=== PATIENT | male | born 1950 | race Caucasian/White ===

== ENCOUNTER 2016-12-05 07:45 | Emergency (ER) | payer MEDICARE, MEDICAID ==
--- NOTE | 2016-12-05 08:40 | C.PDOC ---
Time Seen by Provider: 12/05/16 08:25 Chief Complaint (Nursing): Weakness/Neurological Deficit Past Medical History Vital Signs: Last Vital Signs Temp 97.9 F 12/05/16 08:11 Pulse 112 H 12/05/16 08:11 Resp 18 12/05/16 08:11 BP 225/134 H 12/05/16 08:11 Pulse Ox 99 12/05/16 08:11 - Medical History PMH: Benign Prostatic Hyperplasia, HTN - Social History Hx Alcohol Use: Yes Hx Substance Use: No - Immunization History Hx Tetanus Toxoid Vaccination: No Hx Influenza Vaccination: No Hx Pneumococcal Vaccination: No ED Course And Treatment O2 Sat by Pulse Oximetry: 99
--- NOTE | 2016-12-05 09:00 | C.PDOC ---
History Of Present Illness 66 y/o male brought in by EMS presents to ED with complaints of new onset intermittent right sided weakness since 12/03, currently asymptomatic. Pt states last episode yesterday, stating he felt like he couldn't sit himself up with right arm and felt like he "was dragging" his right leg. Pt saw PMD for same and was advised to come to ED that day. Pt states wasn't able to come in until today. He ran out of BP medications 2 weeks ago but got refill yesterday. Denies history of chest pain or cardiac history. VIA TRANS NEW ONSET R SIDED WEAKNESS SINCE 12/03. INTERMIT, NOW ASYMPT. LAST EPISODE YESTERDAY. PS FELT LIKE COULDNT SIT HIMSELF UP W R ARM, FELT LIKE "WAS DRAGGING " HIS R LEG. SAW PMD FOR SAME 12/04 AND WAS ADVISED TO COME TO ER THAT DAY. PS WASNT ABLE TO UNTIL TODAY. HAD RAN OUT OF BP MEDS X 2 WEEKS BUT GOT REFILL YEST. DENIES HO CP OR PRIOR CARDIAC HX EXAM NAD NONTOXIC LUNGS NEG NEURO SEE NIH GAIT STEADY WNL REMAINDER NEG Time Seen by Provider: 12/05/16 08:25 Chief Complaint (Nursing): Weakness/Neurological Deficit History Per: Patient History/Exam Limitations: no limitations Onset/Duration Of Symptoms: Days, Intermittent Episodes Current Symptoms Are (Timing): Gone Severity: Moderate Reports Recently: Treated By A Physician Recent travel outside of the [place]: No Past Medical History Reviewed: Historical Data, Nursing Documentation, Vital Signs Vital Signs: Last Vital Signs Temp 98.4 F 12/05/16 13:33 Pulse 86 12/05/16 13:33 Resp 16 12/05/16 13:33 BP 185/112 H 12/05/16 13:33 Pulse Ox 96 12/05/16 13:33 - Medical History PMH: Benign Prostatic Hyperplasia, HTN Family History: States: Unknown Family Hx - Social History Hx Alcohol Use: Yes Hx Substance Use: No - Immunization History Hx Tetanus Toxoid Vaccination: No Hx Influenza Vaccination: No Hx Pneumococcal Vaccination: No Review Of Systems Except As Marked, All Systems Reviewed And Found Negative. Constitutional: Negative for: Fever Cardiovascular: Negative for: Chest Pain Respiratory: Negative for: Shortness of Breath Gastrointestinal: Negative for: Vomiting Neurological: Positive for: Weakness (right sided). Negative for: Headache Physical Exam - Physical Exam Appears: Non-toxic, No Acute Distress Skin: Warm, Dry Head: Atraumatic, Normacephalic Neck: Normal, Normal ROM, Supple Chest: Symmetrical Cardiovascular: Rhythm Regular, No Murmur Respiratory: Normal Breath Sounds, No Rales, No Rhonchi, No Wheezing Gastrointestinal/Abdominal: Soft, No Tenderness Extremity: Normal ROM Extremity: Bilateral: Atraumatic Pulses: Left Dorsalis Pedis: Normal, Right Dorsalis Pedis: Normal Neurological/Psych: Oriented x3 (See NIH) Gait: Steady ED Course And Treatment - Laboratory Results Result Diagrams: 12/05/16 09:24 12/05/16 09:24 ECG: Interpreted By Me ECG Rhythm: Sinus Tachycardia Interpretation Of ECG: TWI I II III AVL AVF V4-6. No prior to compare Rate From EC (BPM) O2 Sat by Pulse Oximetry: 99 (room air) Pulse Ox Interpretation: Normal - Radiology CXR: Viewed By Me, Read By Radiologist CXR Interpretation: Yes: No Acute Disease - CT Scan/US CT head Other Rad Studies (CT/US): Read By Radiologist, Radiology Report Reviewed CT/US Interpretation: PROCEDURE: CT HEAD WITHOUT CONTRAST. HISTORY: R SIDED WEAKNESS, UNCONTROL HTN. COMPARISON: None available. TECHNIQUE: Axial computed tomography images were obtained through the head/brain without intravenous contrast. Radiation dose: Total exam DLP = 943.17 mGy-cm. This CT exam was performed using one or more of the following dose reduction techniques: Automated exposure control, adjustment of the mA and/or kV according to patient size, and/or use of iterative reconstruction technique. FINDINGS: HEMORRHAGE: No intracranial hemorrhage. BRAIN: No mass effect or edema. Mild diffuse age-appropriate cerebral atrophy. There is mild to moderate periventricular white matter lucency with patchy deep and subcortical white matter lucency, consistent with age-related microvascular ischemic change. There are small old bilateral thalamic lacunar infarcts. There is an old right lentiform nucleus lacunar infarct. There is remote ischemic change of the external capsule bilaterally. There is minimal brainstem ischemic change. There is no evidence of acute infarct. VENTRICLES: Final. CALVARIUM: Unremarkable. PARANASAL SINUSES: Unremarkable as visualized. No significant inflammatory changes. MASTOID AIR CELLS: Unremarkable as visualized. No inflammatory changes. OTHER FINDINGS: None. IMPRESSION: No intracranial mass , hemorrhage or evidence of acute infarct. 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 Chronic periventricular and deep and subcortical white matter ischemic change consistent with age. NIHSS Stroke Scale - Date/Time Evaluation Performed Date Performed: 12/05/16 Time Performed: 08:30 When Was NIHSS Performed: Baseline - How Severe is the Stroke Level of Consciousness: 0=Alert LOC to Questions: 0=Both comments correct LOC to commands: 0=Obeys both correctly Best Gaze: 0=Normal Visual: 0=No visual loss Facial: 0=Normal Motor Arm - Left: 0=No drift Motor Arm - Right: 0=No drift Motor Leg - Left: 0=No drift Motor Leg - Right: 0=No drift Limb Ataxia: 0=Absent Sensory: 0=Normal Best Language: 0=No aphasia Dysarthia: 0=Normal articulation Extinction & Inattention (Neglect): 0=Normal, no object Score: 0 Progress - Re-Evaluation Re-evaluation Note: 12/05/16 10:21 D/W PMD WILL ADMIT EXAM UNCH. CT NEG - Data Reviewed Data Reviewed: Lab, Diagnostic imaging, EKG, Old records - Critical Care Citical Care: Excluding Proc Time Critical Care Time: 120 minutes - Continuity of Care Discussed patient case with:: Patient rTPA Inclusion/Exclusion - Refusal of Treatment Patient Refused Treatment: No - Inclusion Criteria for Altepase Patient is 18 years or Older: Yes The Clinical Diagnosis of Ischemic Stroke That is Causing a Potentially Disabling Neurological Deficit: No Time of Onset is Well Established to be Less Than 270 Minute Before Treatment Would Begin: No Risk/Benefit Discussed With Patient/Family Member Present: No - Exclusion Criteria for Altepase Uncontrolled Hypertension at Time of Treatment (Systolic BP above 185 or Diastolic BP above 110 mmHg): Yes Active Internal Bleeding: No Known Bleeding Diathesis Including but Not Limited to: Platelets Below 100,000/ mm,PTT Above 40 sec After Heparin Use, Current Use of Oral Anitcoagulant With INR Greater Than 1.7 or PT Greater Than 15 secs: No Evidence of an Intracranial Hemorrhage: No Evidence of Major Acute Infarct With Signs Greater Than 1/3 MCA Territory: No Suspicion of Subarachnoid Hemorrhage on Pretreatment Evaluation Even if CT Head Negative For Hemorrhage: No - Warning to TPA With Conditions Following Conditions Weighed Against Anticipated Benefit: No Condition: Stroke Serevity Too Mild Medical Decision Making Medical Decision Making: Plan: * CT head * EKG * CXR * labs, UA * trandate Disposition Counseled Patient/Family Regarding: Studies Performed, Diagnosis - Disposition Disposition: HOSPITALIZED Disposition Time: 10:30 Condition: STABLE - POA Present On Arrival: None - Clinical Impression Clinical Impression: TIA (transient ischemic attack), Uncontrolled hypertension, Abnormal EKG - Scribe Statement The provider has reviewed the documentation as recorded by the Virgilibpastor Bal Provider Attestation: All medical record entries made by the Virgilibpastor were at my direction and personally dictated by me. I have reviewed the chart and agree that the record accurately reflects my personal performance of the history, physical exam, medical decision making, and the department course for this patient. I have also personally directed, reviewed, and agree with the discharge instructions and disposition. Decision To Admit - Pt Status Changed To: Hospital Disposition Of: Observation - . Bed Request Type: Telemetry Admitting Physician: Gerardo Chau Patient Diagnosis: TIA (transient ischemic attack), Uncontrolled hypertension, Abnormal EKG
[2016-12-05] MEDS ORDERED: Labetalol 25mg/5ml Syringe IVP STA ×2 (09:04→10:23)
[2016-12-05] MEDS ORDERED: Labetalol 25mg/5ml Syringe ONE ×2 (09:26→11:16)
[2016-12-05 09:30] LABS: BASO % 0.9 % (0.0-2.0); EOS % 1.2 % (0.0-4.0); HEMATOCRIT 54.2 % (35.0-51.0); LYMPH # 1.3 K/uL (1.0-4.3); LYMPH % 31.6 % (20.0-40.0); MEAN CELL VOLUME 101.3 fL (80.0-94.0); MEAN CORPUSCULAR HEMOGLOBIN 34.4 pg (27.0-31.0); MEAN PLATELET VOLUME 8.2 fL (7.2-11.7); MONO # 0.6 K/uL (0.0-0.8); MONO % 14.1 % (0.0-10.0); NRBC % 0.1 % (0.0-2.0); RED CELL DISTRIBUTION WIDTH 15.2 % (11.5-14.5); WHITE BLOOD COUNT 4.2 K/uL (4.8-10.8)
[2016-12-05 09:37] LABS: CHLORIDE 99 mmol/L (98-107); POTASSIUM 3.7 mmol/L (3.6-5.2); SODIUM 138 mmol/L (132-148)
[2016-12-05 09:39] LABS: ALB/GLOB RATIO 1.3 (1.0-2.1); BILIRUBIN,TOTAL 1.2 mg/dL (0.2-1.3); CARBON DIOXIDE 29 mmol/L (22-30); CHOLESTEROL 177 mg/dL (0-199); GFR AFRICAN-AMERICAN > 60; TOTAL PROTEIN 7.1 g/dL (6.3-8.3)
[2016-12-05 09:40] LABS: ALKALINE PHOSPHATASE 66 U/L (38-126); ALT/SGPT 24 U/L (21-72); AST/SGOT 33 U/L (17-59); BLOOD UREA NITROGEN 8 mg/dL (9-20); CALCIUM 8.5 mg/dl (8.6-10.4); GLUCOSE,RANDOM 96 mg/dL (75-110)
[2016-12-05 10:04] LABS: RBC URINE 2 /hpf (0-3); URINE BACTERIA FEW (<OCC); URINE BILIRUBIN NEGATIVE (NEGATIVE); URINE BLOOD NEGATIVE (NEGATIVE); URINE COLOR Yellow (YELLOW); URINE GLUCOSE (UA) NORMAL (Normal); URINE KETONE NEGATIVE (NEGATIVE); URINE LEUKOCYTE ESTERASE TRACE Leu/uL (Negative); URINE PROTEIN 1+ mg/dL (NEGATIVE); WBC URINE 15 /hpf (0-5)
--- NOTE | 2016-12-05 10:12 | CT ---
PROCEDURE: CT HEAD WITHOUT CONTRAST. HISTORY: R SIDED WEAKNESS, UNCONTROL HTN COMPARISON: None available. TECHNIQUE: Axial computed tomography images were obtained through the head/brain without intravenous contrast. Radiation dose: Total exam DLP = 943.17 mGy-cm. This CT exam was performed using one or more of the following dose reduction techniques: Automated exposure control, adjustment of the mA and/or kV according to patient size, and/or use of iterative reconstruction technique. FINDINGS: HEMORRHAGE: No intracranial hemorrhage. BRAIN: No mass effect or edema. Mild diffuse age-appropriate cerebral atrophy. There is mild to moderate periventricular white matter lucency with patchy deep and subcortical white matter lucency, consistent with age-related microvascular ischemic change. There are small old bilateral thalamic lacunar infarcts. There is an old right lentiform nucleus lacunar infarct. There is remote ischemic change of the external capsule bilaterally. There is minimal brainstem ischemic change. There is no evidence of acute infarct. VENTRICLES: Final CALVARIUM: Unremarkable. PARANASAL SINUSES: Unremarkable as visualized. No significant inflammatory changes. MASTOID AIR CELLS: Unremarkable as visualized. No inflammatory changes. OTHER FINDINGS: None. IMPRESSION: No intracranial mass, hemorrhage or evidence of acute infarct. 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 Chronic periventricular and deep and subcortical white matter ischemic change consistent with age.
--- NOTE | 2016-12-05 10:18 | RAD ---
HISTORY: ABN EKG COMPARISON: 09/06/2015. TECHNIQUE: Chest PA and lateral FINDINGS: LUNGS: The lungs are well inflated and clear. PLEURA: No significant pleural effusion identified. No pneumothorax apparent. CARDIOVASCULAR: Normal. OSSEOUS STRUCTURES: No significant abnormalities. VISUALIZED UPPER ABDOMEN: Normal. OTHER FINDINGS: None. IMPRESSION: No active pulmonary disease.
[2016-12-05 12:25] VITALS: PULSE 86; RESP 16
[2016-12-05 13:39] VITALS: BP 185/112; TEMP 98.4
[2016-12-07 07:38] VITALS: O2SAT 99
--- NOTE | 2016-12-08 06:50 | CARD ---
APPROVED REPORT EKG Measurement Heart [id number] <Conclusion> Sinus tachycardia Left ventricular hypertrophy with repolarization abnormality Abnormal ECG
== END 2016-12-05 14:05 | disposition left against medical advice (07) ==
LOC: C.ER 07:45 → UNDOADMOB 10:22 → C.9E 10:22 → C.ER 14:05
DX: G45.9 Transient cerebral ischemic attack, unspecified (principal); I10 Essential (primary) hypertension; R94.31 Abnormal electrocardiogram [ECG] [EKG]